=== PATIENT | female | born 1970 | race Two or more races ===

== ENCOUNTER 2024-03-17 11:21 | Emergency (ER) | payer MEDICAID ==
[~2024-03-17] VITALS: Ht 154.9 cm; Wt 77.1 kg
[2024-03-17] MEDS ORDERED: ERYT1OIN6 LEFTEYE (11:40)
[2024-03-17] MEDS: erythromycin ophthalmic ointment 1gm tube LEFTEYE ONE (11:52)
[2024-03-17] MEDS: hydrocortisone 1% cream 28gm TP ONE (11:52)
[2024-03-17 11:54] VITALS: BP 134/84; PULSE 81; RESP 18; TEMP 98; O2SAT 98
== END 2024-03-17 11:57 | disposition home or self-care (01) ==
LOC: ER 11:22
DX: H00.035 Abscess of left lower eyelid (principal); S40.862A Insect bite (nonvenomous) of left upper arm, initial encounter; Z88.0 Allergy status to penicillin; Z79.2 Long term (current) use of antibiotics; W57.XXXA Bitten or stung by nonvenomous insect and other nonvenomous arthropods, initial encounter; Y93.89 Activity, other specified; Y92.89 Other specified places as the place of occurrence of the external cause; Y99.8 Other external cause status
CPT/HCPCS: 99283